=== PATIENT | female | born 1995 | race Caucasian/White ===

== ENCOUNTER 2020-06-26 12:21 | Outpatient (REF) | payer BC, SELFPAY ==
--- NOTE | 2020-06-26 11:15 | PAPFT_PTH ---
PATIENT: KARLA GONZALEZ LOC: [facility] U#:[id number] AGE/SX: 24/F ROOM: RE06/26/[address]: Sarahi Ibarra : 1995 BED: DIS: 06/26/2020 SPEC #: [id number] RECD: 06/26/20 12:54 STATUS: KAREN REAudrey #: [id number] TEETEE: 06/26/20 11:[address]: Sarahi Ibarra DEPT: [facility] Cytology RECD BY: Alison Campbell ENTERED: 06/26/20 12:54 SP TYPE: PAPFT OTHR DR: Danielle Dobson Tissues: 1 - CX/ENDOCX FOR PAP SMEARS Procedures: PAP THIN PREP/[facility] Screening Comments: [id number]
[2020-06-26 13:47] LABS: Glucose 92 mg/dL (74-106); TSH (W/Ref FT4) 4.06 uIU/mL (0.36-3.74)
[2020-06-26 14:06] LABS: FREE T4 1.19 ng/dL (0.76-1.46)
[2020-06-27 10:26] LABS: Hepatitis C Ab w Rflx HCV PCR Negative (Negative)
== END 2020-06-26 12:22 | disposition home or self-care (01) ==
LOC: NCHCN 12:21
PROVIDERS: Visit Provider Nurse Practitioner Family
DX: Z00.00 Encounter for general adult medical examination without abnormal findings (principal); R51.9 Headache, unspecified; F17.210 Nicotine dependence, cigarettes, uncomplicated; Z13.1 Encounter for screening for diabetes mellitus; Z83.3 Family history of diabetes mellitus; R19.8 Other specified symptoms and signs involving the digestive system and abdomen; Z11.59 Encounter for screening for other viral diseases; Z12.4 Encounter for screening for malignant neoplasm of cervix; Z01.419 Encounter for gynecological examination (general) (routine) without abnormal findings
CPT/HCPCS: 82947; 86803; 88142; 84439; 84443